=== PATIENT | female | born 1950 | race Caucasian/White ===

== ENCOUNTER 2023-05-01 08:39 | Day surgery (SDC) | payer MEDICARE, SELFPAY ==
[2023-05-01] VITALS (8 sets, daily range): BP systolic 107–158; BP diastolic 57–82; PULSE 66–94; RESP 12–20; TEMP 36.4–36.6; O2SAT 93–99; BMI 36.0
[2023-05-01] MEDS: LACTATED RINGER'S SOLUTION 1,000 ML 50 ML IV (09:18)
--- NOTE | 2023-05-01 11:05 | PC.NURSE ---
tiny abrasion right upper lip; no drainage noted
--- NOTE | 2023-05-01 11:07 | OP_ITS ---
OPERATION DATE: ??05/01/2023 PRIMARY CARE PHYSICIAN:? Debi Mauro M.D. SURGEON:? Margarita Muniz M.D. PREOPERATIVE DIAGNOSIS:? Tongue base mass. POSTOPERATIVE DIAGNOSIS:? Globus sensation. PROCEDURE:? Microlaryngoscopy. ANESTHESIA:? General endotracheal. COMPLICATIONS:? None. FINDINGS:? Grossly normal tongue base. INDICATIONS:? This 72-year-old woman presented with a three year history of globus sensation and appeared to have a left tongue base abnormality on examination, and a right tongue base abnormality on CT scan.? Patient was brought to the OR for careful examination for definitive diagnosis to rule out neoplasm. PROCEDURE:? Patient identified in the holding area and taken back to the OR where she was placed in the supine position.? After induction of general endotracheal anesthesia, the table was turned, the shoulder roll placed and a tooth guard put in position.? An anterior commissure laryngoscope was used to examine the tonsillar fossa, tongue base and endolarynx.? There was no abnormality evident.? The tongue was then carefully palpated and still no abnormality was evident.? Then, examination was repeated using a 30 degree cystoscope and still there was no abnormality evident needing to be biopsied.? The patient was then awakened and taken to the recovery room in good condition. EZ
== END 2023-05-01 11:54 | disposition home or self-care (01) ==
PROVIDERS: PCP Family Medicine; Visit Provider Otolaryngology
PROC: (CPT 31526; principal; 2023-05-01 10:00)
DX: D49.0 Neoplasm of unspecified behavior of digestive system (principal); F45.8 Other somatoform disorders; Z79.899 Other long term (current) drug therapy; E78.00 Pure hypercholesterolemia, unspecified; I10 Essential (primary) hypertension; Z86.010 Personal history of colon polyps; M19.90 Unspecified osteoarthritis, unspecified site; E03.9 Hypothyroidism, unspecified; Z90.49 Acquired absence of other specified parts of digestive tract
CPT/HCPCS: 31526; J2704

== ENCOUNTER 2024-09-17 08:50 | Day surgery (SDC) | payer MEDICARE, SELFPAY ==
--- NOTE | 2024-09-17 09:03 | FL_ITS ---
The [address] [address] Patient Name: YUMIKO MORALES MRN: [id number] date: 1950 Sex: F Assigned Patient Location: OR Current Patient Location: Accession/Order Number: [id number] Exam Date: 09/17/2024 09:15 Report Date: 09/17/2024 10:54 At the request of: RAVI OROPEZA Procedure: FL hip inj RT EXAMINATION: FL hip inj RT, FL guided needle placement HISTORY: Right Hip Osteoarthritis FLUORO DOSE: Cannot calculate. mGy Reference air kerma (Ka,r) COMPARISON: No relevant comparison available. TECHNIQUE: An arthrogram was performed under fluoroscopic guidance using non-ionic contrast material in the usual sterile manner after obtaining informed consent. Standard level fluoroscopic mode of operation utilized. FINDINGS: JOINT: Right hip NEEDLE: 25 gauge, 3.5 spinal needle. MEDICATION: 2 mL buffered 1% lidocaine for subcutaneous anesthesia. 2 mL Omnipaque-240 iodinated contrast to visualize the joint space. Only 5 mL of the following mixture was able to be injected into the joint space: 40 mg Kenalog, 2 mL 0.5% bupivacaine, and 3 mL Omnipaque 240 injected into the joint space. TECHNIQUE: Anterior approach with prior localization of the femoral artery. A single stick was successful in gaining access to the joint space. CLINICAL: No immediate change in joint pain post injection. COMPLICATIONS: None. OTHER: Negative. FL/FL hip inj RT IMPRESSION: 1. Technically successful right hip injection. 2. Tight/small joint capsule which limited amount of medication able to be injected into the joint space. Electronically authenticated by: YANG GARCIA Date: 09/17/2024 10:54
--- NOTE | 2024-09-17 09:03 | FL_ITS ---
The [address] [address] Patient Name: YUMIKO MORALES MRN: [id number] date: 1950 Sex: F Assigned Patient Location: [place] Current Patient Location: Accession/Order Number: [id number] Exam Date: 09/17/2024 09:15 Report Date: 09/17/2024 10:54 At the request of: RAVI OROPEZA Procedure: FL guided needle placement EXAMINATION: FL hip inj RT, FL guided needle placement HISTORY: Right Hip Osteoarthritis FLUORO DOSE: Cannot calculate. mGy Reference air kerma (Ka,r) COMPARISON: No relevant comparison available. TECHNIQUE: An arthrogram was performed under fluoroscopic guidance using non-ionic contrast material in the usual sterile manner after obtaining informed consent. Standard level fluoroscopic mode of operation utilized. FINDINGS: JOINT: Right hip NEEDLE: 25 gauge, 3.5 spinal needle. MEDICATION: 2 mL buffered 1% lidocaine for subcutaneous anesthesia. 2 mL Omnipaque-240 iodinated contrast to visualize the joint space. Only 5 mL of the following mixture was able to be injected into the joint space: 40 mg Kenalog, 2 mL 0.5% bupivacaine, and 3 mL Omnipaque 240 injected into the joint space. TECHNIQUE: Anterior approach with prior localization of the femoral artery. A single stick was successful in gaining access to the joint space. CLINICAL: No immediate change in joint pain post injection. COMPLICATIONS: None. OTHER: Negative. FL/FL guided needle placement IMPRESSION: 1. Technically successful right hip injection. 2. Tight/small joint capsule which limited amount of medication able to be injected into the joint space. Electronically authenticated by: YANG GARCIA Date: 09/17/2024 10:54
[2024-09-17] MEDS: LIDOCAINE HCL 10 ML, SODIUM BICARBONATE 1 MEQ INJ (10:00)
[2024-09-17] MEDS: TRIAMCINOLONE ACETONIDE 40 MG/ML VIAL INJ (10:00)
[2024-09-17] MEDS: BUPIVACAINE HCL 0.5% PF 50 MG/10 ML VIAL 2 ML INJ (10:00)
--- NOTE | 2024-09-17 10:37 | SUR.PREOP ---
09/15/24 Pt instructed on procedure, date, time, and prep.
== END 2024-09-17 10:25 | disposition home or self-care (01) ==
LOC: FL 08:54
PROVIDERS: Radiology Diagnostic Radiology; PCP Family Medicine; Visit Provider Nurse Practitioner Family
DX: M16.11 Unilateral primary osteoarthritis, right hip (principal)
CPT/HCPCS: 20610; 77002; J0665; J3301; Q9966